=== PATIENT | male | born 1995 | race Two or more races ===

== ENCOUNTER 2018-03-28 06:29 | Emergency (ER) | payer MEDICAID ==
[~2018-03-28] VITALS: Ht 195.6 cm; Wt 136.1 kg
[2018-03-28 07:29] VITALS: BP 155/65
[2018-03-28] MEDS ORDERED: PEPCID AC10 MG PO (07:29)
--- NOTE | 2018-03-28 07:29 | Emergency Room Report ---
History of Present Illness General Chief Complaint: Abdominal Pain Source: Patient Present Illness HPI This patient c/o epigastric burning since around 10 pm. Moderate severity, constant. No similar history. Mild nausea. No vomiting, no fever, no other abd pain. No sob, cp, cough. Normal bm/urine/eating. 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 No nsaids, no etoh. Did not try any OTC meds. Allergies: Uncoded Allergies: no know allergy (Allergy, Unknown, 03/28/18) Nursing Documentation-H Hx Cardiac Problems: No Hx Hypertension: No Hx Pacemaker: No Hx Asthma: No Hx COPD: No Hx Diabetes: No Hx Cancer: No Hx Gastrointestinal Problems: No Hx Dialysis: No History Of Psychiatric Problem: No Hx Neurological Problems: No Hx Cerebrovascular Accident: No Hx Seizures: No Review of Systems Constitutional: Reports: no symptoms Eye: Reports: no symptoms ENT: Reports: no symptoms Respiratory: Reports: no symptoms Cardiovascular: Reports: no symptoms Gastrointestinal: Reports: see HPI, nausea Genitourinary: Reports: no symptoms Musculoskeletal: Reports: no symptoms Skin: Reports: no symptoms Psychiatric: Reports: no symptoms Neurological: Reports: no symptoms Endocrine: Reports: no symptoms Hematologic/Lymphatic: Reports: no symptoms Allergic: Reports: no symptoms All Other Systems: negative except mentioned in HPI Physical Exam Vital Signs Date Time Temp Pulse Resp B/P (MAP) Pulse Ox O2 Delivery O2 Flow Rate FiO2 03/28/18 06:47 98.6 88 18 162/84 99 Sp02 EP Interpretation: reviewed, normal General Appearance: normal inspection, well appearing, no apparent distress, alert, GCS 15, non-toxic, obese, other Head: normocephalic, atraumatic Eyes: bilateral eye normal inspection, bilateral eye PERRL, bilateral eye EOMI ENT: normal ENT inspection, hearing grossly normal, normal pharynx, no angioedema, normal voice, moist mucus membranes Neck: normal inspection, full range of motion, supple, no meningismus, no bony tend Respiratory: normal inspection, lungs clear, normal breath sounds, no rhonchi, no respiratory distress, no retraction, no accessory muscle use, no wheezing Cardiovascular #1: normal inspection, regular rate, rhythm, no edema Gastrointestinal: normal inspection, normal bowel sounds, soft, no mass, non- distended, other - mild epigastric tenderness Musculoskeletal: gait/station normal, normal range of motion Neurologic: normal inspection, alert, oriented x3, responsive, motor strength/ tone normal Psychiatric: normal inspection, judgement/insight normal, memory normal Suicide Risk Assessment: Suicidal Ideation: No Had intent to initiate attempt: No Pt's plan for suicide attempt: No Has means to complete attempt: No Skin: normal inspection, normal color, no rash, warm/dry Medical Decision Making Diagnostic Impression: Primary Impression: Acute gastritis ER Course feels better after GI cocktail Last Vital Signs Date Time Temp Pulse Resp B/P (MAP) Pulse Ox O2 Delivery O2 Flow Rate FiO2 03/28/18 06:47 98.6 88 18 162/84 99 Disposition: HOME, SELF-CARE Condition: Stable Scripts Famotidine (PEPCID AC) 10 Mg Tablet 10 MG PO BID, #20 TAB Prov: Sascha Geiger M.D. 03/28/18 Patient Instructions: Gastritis, Adult Sascha Geiger M.D. Mar 28, 2018 07:29
[2018-03-28] MEDS ORDERED: Mylanta II UD 30ml ORAL ONE (07:30)
[2018-03-28] MEDS ORDERED: Lidocaine 2% Visc 15ml soln PO ONE (07:30)
[2018-03-28 08:44] VITALS: BP 133/96
== END 2018-03-28 08:48 | disposition home or self-care (01) ==
LOC: EMR 07:25
DX: K29.00 Acute gastritis without bleeding (principal); R11.0 Nausea
CPT/HCPCS: 99283